=== PATIENT | male | born 1980 | race Caucasian/White ===

== ENCOUNTER 2021-08-16 22:40 | Emergency (ER) | payer BC ==
[2021-08-16] MEDS ORDERED: Sulfamethoxazole/Trimethoprim 800-160 MG Tab PO ONE (23:56)
--- NOTE | 2021-08-16 23:58 | EDM.PDOC ---
ED HPI GENERAL MEDICAL PROBLEM - General Chief Complaint: Skin Complaint Stated Complaint: SWOLLEN TESTICLE Time Seen by Provider: 08/16/21 22:46 - History of Present Illness INITIAL COMMENTS - FREE TEXT/NARRATIVE: CHIEF COMPLAINT(S): Pain and swelling behind testicle HISTORY OF PRESENT ILLNESS: This is a 41-year-old man without any significant past medical history who comes to the emergency department with a chief complaint of pain and swelling behind testicle. The patient states that for approximately 1 day now he has been experiencing pain and swelling behind his left testicle. He states that his looked at it and she was able to express some drainage. He states that he is experiencing throbbing pain in this area which she rates as 6 out of 10 and sharp. There is no radiation of this pain. He denies any pain with defecation and denies any penile pain, penile discharge or testicular pain. He is concerned that he may have an infection in this area. He has not yet tried anything for pain medication other than ice which seemed to help with the pain. There are no exacerbating factors other than touching it. He states that he is never had this before REVIEW OF SYSTEMS: Constitutional: Denies fever, chills. Genitourinary: Denies hematuria, dysuria, penile discharge, penile pain, testicular pain Skin: Positive for swelling and pain behind left testicle PAST MEDICAL HISTORY: As per history of present illness and as reviewed below otherwise noncontributory. SURGICAL HISTORY: As per history of present illness and as reviewed below otherwise noncontributory. SOCIAL HISTORY: As per history of present illness and as reviewed below otherwise noncontributory. FAMILY HISTORY: As per history of present illness and as reviewed below otherwise noncontributory. EXAMINATION OF ORGAN SYSTEMS/BODY AREAS: Constitutional: Blood pressure was 124/69, heart rate 92, respiratory rate 17 with an oxygen saturation 97% on room air. Temperature 36 point General: Middle-aged man who is in no acute distress Psychiatric: Appropriate mood and affect. Eyes: No scleral icterus or conjunctival erythema Cardiovascular: Regular, rate, and rhythm. No gallops, murmurs, or rubs. Respiratory: Lungs clear to auscultation bilaterally. No wheezes, rales, or rhonchi. Gastrointestinal: Soft, non-tender, non-distended. Normoactive bowel sounds Genitourinary: No suprapubic tenderness just posterior to the testicles along the perineum there is an area that measures 2 x 2 cm that has some induration and overlying erythema. There is no evidence of any fluctuance. Musculoskeletal: Normal range of motion. Skin: As noted above Neurological: Alert, GCS 15 MEDICAL DECISION MAKING AND COURSE IN THE ED WITH INTERPRETATION/REVIEW OF DIAGNOSTIC STUDIES: This is a 41-year-old man without any significant past medical history who comes to the emergency department with perineal cellulitis that was able to express. At this time given no fluctuance there is no need to perform incision and drainage. I did offer incision and drainage however the patient elected for antibiotic treatment at this time and he would like to return if it worsens. I do believe this is a appropriate plan. We will provide the patient with Bactrim by mouth and have him follow-up with his primary care physician. He was amenable to discharge and had no further questions DISPOSITION: The patient was discharged home in stable condition. The patient will follow up with primary care physician in 3 to 5 days CONDITION: Fair PROCEDURES: None FINAL IMPRESSION(S)/DIAGNOSES: 1. Acute perineal cellulitis vs draining abscess Cruzito Smith M.D. Left Scrotum Pain Score (Numeric/FACES): 6 - Related Data Allergies Allergy/AdvReac Type Severity Reaction Status Date / Time No Known Allergies Allergy Verified 08/16/21 22:45 Home Meds: Home Meds Sulfamethoxazole/Trimethoprim [Bactrim Ds Tablet] 1 each PO BID #14 tablet 08/16/21 [Rx] Past Medical History - Past Health History Medical/Surgical History: Denies Medical/Surgical History - Infectious Disease History Infectious Disease History: Reports: Chicken Pox Social & Family History - Family History Family Medical History: No Pertinent Family History - Recreational Drug Use Recreational Drug Use: No ED ROS GENERAL - Review of Systems Review Of Systems: See Below ED EXAM, SKIN/RASH Exam: See Below Course - Vital Signs Last Recorded V/S: Last Vital Signs Temp 36.2 C 08/16/21 23:00 Pulse 90 08/17/21 01:08 Resp 17 08/17/21 01:08 BP 171/72 H 08/17/21 01:08 Pulse Ox 96 08/17/21 01:08 - Orders/Labs/Meds Meds: Medications Discontinued Medications Generic Name Dose Route Start Last Admin Trade Name Freq PRN Reason Stop Dose Admin Trimethoprim/Sulfamethoxazole 1 tab 08/16/21 23:56 08/17/21 01:07 Sulfamethoxazole/Trimethoprim 800-160 Mg Tab PO 08/16/21 23:57 1 tab ONETIME ONE Administration Departure - Departure Time of Disposition: 23:57 Disposition: Home, Self-Care 01 Condition: Fair Clinical Impression: Cellulitis, Abscess - Discharge Information *PRESCRIPTION DRUG MONITORING PROGRAM REVIEWED*: No *COPY OF PRESCRIPTION DRUG MONITORING REPORT IN PATIENT ADDISON: No Prescriptions: Sulfamethoxazole/Trimethoprim [Bactrim Ds Tablet] 1 each PO BID #14 tablet Instructions: Skin Abscess, Cellulitis, Adult, [id number] Referrals: PCP,None [Primary Care Provider] - Forms: ED Department Discharge Additional Instructions: You were evaluated today on an emergent basis. At this time I do believe that because it has already been draining but that no incision needs to be made. We will treat you with antibiotics. I recommend you take Bactrim twice a day until the antibiotics are completed. As discussed if the swelling worsens or you have increased redness I want you to return to the emergency department. Otherwise please follow-up with your primary care physician in 3 to 5 days for reevaluation. Please use: Tylenol 500-1000mg every 6 hours (DO NOT TAKE MORE THAN 4000mg in 1 day) Ibuprofen 400mg every 6 hours (Take with food as it can cause ulcers, GI upset) Example schedule: 8:00 AM (Tylenol 500-1000mg) 11:00 AM (Ibuprofen 400mg) 2:00 PM (Tylenol 500-1000mg) 5:00 PM (Ibuprofen 400mg) [facility] [address] [place] [address] [id number] [address] [address] The patient is informed of any results of their evaluation and diagnostic workup and all questions are answered. They are given discharge instructions and return precautions. The patient is stable for discharge. The patient states they understand and agree with the plan and that they will return if their symptoms get worse or if they have any new concerns. The following information is given to patients seen in the emergency department who are being discharged to home. This information is to outline your options for follow-up care. We provide all patients seen in our emergency department with a follow-up referral. The need for follow-up, as well as the timing and circumstances, are variable depending upon the specifics of your emergency department visit. If you don't have a primary care physician on staff, we will provide you with a referral. We always advise you to contact your personal physician following an emergency department visit to inform them of the circumstance of the visit and for follow-up with them and/or the need for any referrals to a consulting specialist. The emergency department will also refer you to a specialist when appropriate. This referral assures that you have the opportunity for follow-up care with a specialist. All of these measure are taken in an effort to provide you with optimal care, which includes your follow-up. Under all circumstances we always encourage you to contact your private physician who remains a resource for coordinating your care. When calling for follow-up care, please make the office aware that this follow-up is from your recent emergency room visit. If for any reason you are refused follow-up, please contact the [facility] Emergency Department at and asked to speak to the emergency department charge nurse. Sepsis Event Note (ED) - Evaluation Sepsis Screening Result: No Definite Risk
== END 2021-08-17 01:09 | disposition home or self-care (01) ==
LOC: MW.ED 22:40
DX: L03.315 Cellulitis of perineum (principal); L02.215 Cutaneous abscess of perineum
CPT/HCPCS: 99283; A9270

== ENCOUNTER 2023-06-29 15:59 | Emergency (ER) | payer BC ==
[2023-06-29] MEDS ORDERED: Sodium Chloride 0.9% 1,000 ML IV ONE ×2 (16:23→17:38)
[2023-06-29 16:48] LABS: BASOPHILS PERCENT AUTO 0.6 % (0.0-1.0); EOSINOPHILS ABSOLUTE AUTO 0.16 K/uL (0.00-0.45); HEMATOCRIT 42.1 % (42.0-52.0); HEMOGLOBIN 15.1 g/dL (14.0-18.0); IMMATURE GRAN ABSOLUTE AUTO 0.15 K/uL (0.00-0.05); IMMATURE GRAN PERCENT AUTO 0.9 % (0.0-0.4); LYMPHOCYTES ABSOLUTE AUTO 2.48 K/uL (1.00-4.80); MEAN CORPUSCULAR HEMOGLOBIN 31.4 pg (28.0-32.0); MEAN CORPUSCULAR HGB CONC 35.9 g/dL (32.0-36.0); MEAN CORPUSCULAR VOLUME 87.5 fL (83.0-99.0); MEAN PLATELET VOLUME 10.4 fL (9.4-12.4); MONOCYTES ABSOLUTE AUTO 0.99 K/uL (0.00-0.80); NEUTROPHILS ABSOLUTE AUTO 12.66 K/uL (1.80-7.70); NEUTROPHILS PERCENT AUTO 76.5 % (41.0-71.0); PLATELET COUNT,PLT 290 K/uL (150-400); RED BLOOD CELL COUNT 4.81 M/uL (4.52-5.90); WHITE BLOOD CELL COUNT,WBC 16.54 K/uL (3.9-11.3)
[2023-06-29 17:20] LABS: LACTIC ACID 2.1 mmol/L (0.4-2.0)
[2023-06-29 17:27] LABS: A/G RATIO 1.2 (0.9-1.6); ALBUMIN 3.6 g/dL (3.4-5.0); BILIRUBIN TOTAL 0.5 mg/dL (0.2-1.0); CALCIUM 8.4 mg/dL (8.5-10.1); CARBON DIOXIDE,CO2 25.6 mmol/L (21.0-32.0); CREATININE 1.3 mg/dL (0.8-1.3); EST CRCL DRUG DOSING (CG) 79.91 mL/min; POTASSIUM,K 3.7 mmol/L (3.5-5.1); PROTEIN TOTAL,TP 6.6 g/dL (6.4-8.2)
[2023-06-29 18:50] LABS: LACTIC ACID 1.3 mmol/L (0.4-2.0)
[2023-06-29 18:53] LABS: BILIRUBIN,URINE NEGATIVE (NEGATIVE); COLOR,URINE YELLOW; GLUCOSE,URINE NEGATIVE (NEGATIVE); KETONES,URINE NEGATIVE (NEGATIVE); LEUKOCYTE ESTERASE,URINE NEGATIVE (NEGATIVE); NITRITE,URINE NEGATIVE (NEGATIVE); OCCULT BLOOD,URINE NEGATIVE (NEGATIVE); PROTEIN,URINE TRACE mg/dL (NEGATIVE); UROBILINOGEN,URINE 0.2 EU/dL (<2.0)
[2023-06-29 18:58] LABS: AMORPHOUS SEDIMENT,URINE LIGHT (NEGATIVE); APPEARANCE,URINE HAZY; BACTERIA,URINE RARE (NEGATIVE); EPITHELIAL CELLS,URINE FEW (NONE-FEW); HYALINE CASTS,URINE 0-1 (0-2/LPF); MUCUS,URINE MODERATE (NONE-MOD); RBC,URINE 0-1 (0-2/HPF); WBC,URINE 0-1 (0-5/HPF)
== END 2023-06-29 19:11 | disposition home or self-care (01) ==
LOC: MW.ED 15:59
DX: S22.070A Wedge compression fracture of T9-T10 vertebra, initial encounter for closed fracture (principal); R55 Syncope and collapse; F17.210 Nicotine dependence, cigarettes, uncomplicated
CPT/HCPCS: 36415; 70450; 71045; 72128; 80053; 81001; 82375; 82947; 83605; 84484; 85025; 93005; 96360; 96361; 99285; J7030